=== PATIENT | male | born 1960 | race Caucasian/White ===

== ENCOUNTER 2019-06-06 08:35 | Outpatient (RCR) | payer OTHER, SELFPAY | END 2019-07-03 00:01 | LOC: SPT 08:35 | PROVIDERS: Family Provider Internal Medicine; Visit Provider Orthopaedic Surgery | DX: M94.261 Chondromalacia, right knee (principal) | CPT/HCPCS: 97110 ×3; 97161 ==

== ENCOUNTER 2019-07-04 12:11 | Outpatient (RCR) | payer OTHER, SELFPAY | END 2019-07-16 23:00 | disposition home or self-care (01) | LOC: SPT 12:11 | PROVIDERS: Family Provider Internal Medicine; PCP Family Medicine; Visit Provider Orthopaedic Surgery | DX: M94.261 Chondromalacia, right knee (principal) ==

== ENCOUNTER 2021-01-02 08:56 | Outpatient (CLI) | payer OTHER, SELFPAY ==
--- NOTE | 2021-01-02 09:09 | FL_ITS ---
WS: [id number] Barium swallow and esophagram, 01/02/2021 Clinical Data: DYSPHAGIA Comparison: None. Fluoroscopy time: 0.9 minutes. Findings: The patient swallowed the thick and thin barium, and it flowed through the hypopharynx without hesita tion. No stricture, mass, polyp or erosion was seen. The patient has an anterior cervical disc fusion of C3-C4. The barium entered the esophagus and there was normal motility throughout. No hiatal hernia, reflux, stricture, polyp, mass, erosion or ulcer was noted. No reflux was present. FL/FL barium swallow [id number] Impression: Normal esophagram.
--- NOTE | 2021-01-02 09:09 | CT_ITS ---
WS: [id number] CT scan of the neck. Additional two-dimensional coronal and sagittal reconstruction was performed. 01/02/2021 Clinical Data: DYSPHAGIA Comparison: None. DLP: 1401.[address] scans at [facility] use at least one of these dose optimization techniques: automat ed exposure control; mA and/or kV adjustment per patient size (includes targeted exams where dose is matched to clinical indication); or iterative reconstruction. Findings: No lymphadenopathy is noted. The salivary glands are unremarkable. There is no prevertebral soft tiss ue swelling. The larynx is symmetric. The thyroid gland shows normal enhancement. The floor of the mo uth and parapharyngeal spaces are normal. The oral cavity is unremarkable. The carotid arteries bifurcate normally. The cervical spine demonstrates an anterior cervical disc fu nisha at C4-C5. Moderate osteoarthritis of the vertebral bodies from C2 through C7 is seen. The lung a pices show no abnormalities. The portions of the intracranial circulation which are seen demonstrate no abnormalities. No erosion of the skull or skull base is seen. The left maxillary sinus shows mucop eriosteal thickening. CT/CT neck w con* [id number] Impression: Negative CT scan of the neck.
[2021-01-02 09:44] LABS: Blood Urea Nitrogen 12 mg/dL (8-23); Glomerular Filtration Rate 137.4 mL/min (90-130)
[2021-01-02] MEDS: iohexol 300 mg/mL 100 mL Btl IV (09:49)
== END 2021-01-02 08:57 | disposition home or self-care (01) ==
PROVIDERS: Radiology Diagnostic Radiology; PCP Family Medicine; Visit Provider Specialist
DX: R13.10 Dysphagia, unspecified (principal)
CPT/HCPCS: 70491; 74220; 82565; 84520; Q9967

== ENCOUNTER 2022-03-12 10:24 | Outpatient (CLI) | payer OTHER, SELFPAY ==
[2022-03-12 11:57] LABS: Basophils % 1.1 %; Eosinophils % 0.4 %; Hematocrit 42.8 % (42.0-52.0); Hemoglobin 14.6 g/dL (11.7-16.6); Lymphocytes # 0.6 10^3/uL (0.8-4.8); Mean Corpuscular HGB Conc 34.1 g/dL (30.0-36.0); Mean Corpuscular Hemoglobin 29.6 pg (28.0-34.0); Mean Corpuscular Volume 86.6 fl (80-94); Monocytes # 0.7 10^3/uL (0.2-0.9); Monocytes % 25.2 %; Neutrophils # 1.28 10^3/uL (1.8-7.7); Neutrophils % 48.9 %; Nucleated Red Blood Cells % 0 %; Platelet Count 147 10^3/cmm (130-400); Red Blood Count 4.94 10^6/uL (4.1-5.3); White Blood Count 2.6 10^3/uL (4.0-10.0)
== END 2022-03-12 10:25 | disposition home or self-care (01) ==
LOC: LAB 10:28
PROVIDERS: PCP Family Medicine; Visit Provider Chiropractor
DX: C85.90 Non-Hodgkin lymphoma, unspecified, unspecified site (principal)
CPT/HCPCS: 85025

== ENCOUNTER 2022-08-24 08:52 | Outpatient (CLI) | payer OTHER, SELFPAY ==
--- NOTE | 2022-08-24 09:39 | XR_ITS ---
WS: [id number] Comparison 07/17/2012. Exam: XR shoulder LT min 2V* [id number] Date/Time of Exam: 08/24/2022 9:44 AM Reason For Exam: LEFT SHOULDER PAIN No fracture or dislocation noted. Degenerative change of the AC joint and the greater humeral tuberos ity. Normal soft tissues. XR/XR shoulder LT min 2V* [id number] IMPRESSION: 1. Degenerative changes. No fracture or dislocation.
--- NOTE | 2022-08-24 09:39 | XR_ITS ---
WS: [id number] Exam: XR lumbar spine 2-3V* [id number] Date/Time of Exam: 08/24/2022 9:44 AM Reason For Exam: LOW BACK PAIN No acute fracture or dislocation. Mild spondylosis. Disc spaces are preserved. Facet DJD at L4-5 and L5-S1. XR/XR lumbar spine 2-3V* [id number] IMPRESSION: 1. No fracture or malalignment. 2. Mild degenerative changes.
--- NOTE | 2022-08-24 09:39 | XR_ITS ---
WS: [id number] Exam: XR cervical spine 3V* [id number] Date/Time of Exam: 08/24/2022 9:44 AM Reason For Exam: NECK PAIN Comparison with outside images performed 05/20/2014. No acute fracture or dislocation. There is anterior fusion at C4-5 which is in good alignment without change. Facet DJD at all levels. Spondylosis from C2 to C7. There is straightening. Normal paraspina l soft tissue structures. The odontoid is intact. XR/XR cervical spine 3V* [id number] IMPRESSION: 1. Anterior fusion at C4-5 with plate and screw fixation stable in appearance. 2. No fracture or malalignment. Degenerative changes. Straightening.
== END 2022-08-24 08:53 | disposition home or self-care (01) ==
LOC: RAD 09:22
PROVIDERS: PCP Family Medicine; Visit Provider Dermatology
DX: Z02.71 Encounter for disability determination (principal); M25.512 Pain in left shoulder; M47.816 Spondylosis without myelopathy or radiculopathy, lumbar region; M47.817 Spondylosis without myelopathy or radiculopathy, lumbosacral region; Z98.1 Arthrodesis status; M47.812 Spondylosis without myelopathy or radiculopathy, cervical region
CPT/HCPCS: 72040; 72100; 73030

== ENCOUNTER → 2023-03-28 09:36 | Outpatient (BNVA) | payer OTHER, SELFPAY | PROVIDERS: PCP Family Medicine; Referring Provider Family Medicine; Visit Provider Surgery | DX: R19.00 Intra-abdominal and pelvic swelling, mass and lump, unspecified site (principal); D64.9 Anemia, unspecified | CPT/HCPCS: 99203; 99214 ==

== ENCOUNTER 2023-07-01 09:57 | Oncology outpatient (recurring) (ONCR) | payer OTHER, SELFPAY ==
--- OUTSIDE RECORDS SUMMARY | 2023-06-30 10:58 | XMS_ITS | Patient Health Record ---
Author Name Unknown Organization [facility] Address [address] [place], [place] [id number] Care Team Providers Care Creative/Art Director Name Role Phone Mame Moy PA-C Primary Care Provider Unavailjob Solis MD, Maxwell Unavailable [phone] [place], [place] Unavailable Unavailable ALLERGIES No Known Allergies REASON FOR REFERRAL No Information MEDICATIONS Medication SIG (Take, Route, Frequency, Duration) Notes Start Date End Date Status Lipitor 10 mg 1 tab orally once a day Active Januvia 25 mg 1 tab orally once a day Active glipiZIDE 10 mg 1 tab orally once a day Active finasteride 5 mg 1 tab orally once a day Active gabapentin 300 mg 1 cap po orally TID for 90 days Active ferrous sulfate 325 mg 1 tab orally 2 ti mes a day Active DULoxetine 60 mg 1 cap orally once a day Active Vitamin D3 1000 intl units as directed o rally once a day Active aspirin 81 mg 1 tab orally once a day Active Vitamin C with Tatiana Hips 500 mg 1 tab orally once a day Acti ve traMADol 50 mg 1 tab orally at bedtime Active metFORMIN 1000 mg 1 tab orally 2 times a day Active losartan 25 mg 1 tab orally once a day Active SOCIAL HISTORY Tobacco Use: Social History Observation Description Date Details (start date - stop date) Never Smoker NA - NA Sex Assigned At : Social History Observation Description Sex Assigned At Male alcohol Question Answer Notes Did you have a drink containing alcohol in the p ast year? No Points 0 Interpretation Negative Tobacco use: Question Answer Notes : nonsmoker PROBLEMS Problem Type ICD Code Onset Dates Problem Status W/U Status Risk SNOMED Code Notes Problem Low back pain (M54.5) Active confirmed Low back pain (479013578) Problem Spondylosis without myelopathy or radiculopathy, lumbar region (M47.816) Active confirmed Lumbosacral spondylosis without myelopathy (79391421) Problem intermediate frame tender (current) use of opiate analgesic (Z79.891) Active confirmed High risk drug monitoring status (896070341) Problem Obstructive sleep apnea (adult) (pediatric) (G47.33) Active confirmed Obstructive sleep apnea syndrome (42000694) Problem Pain in left shoulder (M25.512) Active confirmed Shoulder joint pain (379213469) Problem Cervical disc disorder with radiculopathy, unspecified cervical region (M50.10) Active confirmed Cervical radiculopathy (10194610) Problem Fibromyalgia (M79.7) Active confirmed Fibromyalgia (735488803) Problem Other adjunct faculty for medical terminology (current) drug therapy (Z79.899) Active confirmed Long-term current use of drug therapy (535621900) Problem Cervical disc disorder at C4-C5 level with radiculopathy (M50.121) Active confirmed Cervical disc disorder with radiculopathy (403727645) Problem Spinal stenosis, lumbar region without neurogenic claudication (M48.061) Active confirmed Spinal stenosis of lumbar region (69334769) Problem Vertebrogenic low back pain (M54.51) Active confirmed Vertebrogenic pain syndrome (691095554) PLAN OF TREATMENT No Information Insurance Providers Payer Name Payer Address Payer Phone Subscriber Number Group Number Insured Name Patient Relationship to Insured Coverage Start Date Coverage End Date [employer] [address] [place] [address] [id number] Charles Perales Self - patient is the insured MEDICAL (GENERAL) HISTORY Medical History History ICD Code Fibromyalgia Neck pain Low back pain Shoulder pain Migraine headaches Sleep apnea syndrome Limited flexion of knee Diabetes mellitus type 2 Abnormal results of liver function studi es Essential hypertension Hyperlipidemia / statin medication use Injury of the bladder Paralysis of median nerve Obesity, moderate Impairment of sphincter control Polyp of colon Psychosexual disorder Lumbar spinal stenosis, mult ilevel, mild to moderate (as noted upon review of 2018 MRI report) Surgical History Surgery Date(Month/Year) C4-5 ACDFF, performed at [facility] by Dr. Carlene Ramírez, 2008 Left shoulder surgery, performed at [facility] by Dr. Chris Hahn, 2008 Right cataract surgery, performed by Dr. Gunter, 2019 Hospitalization History Reason Date(Month/Year)
--- OUTSIDE RECORDS SUMMARY | 2023-07-01 09:58 | XMS_ITS | Patient Health Record ---
Author Name Unknown Organization [facility] Address [address] [place], [place] [address] Care Team Providers Care Auto Repair Shop Manager Name Role Phone Mame Moy PA-C Primary Care Provider Unavailjob Solis MD, Maxwell Unavailable [phone] [place], [place] Unavailable Unavailable ALLERGIES No Known Allergies REASON [...] pain (M54.5) Active confirmed Low back pain (857204696) Problem Spondylosis without myelopathy or radiculopathy, lumbar region (M47.816) Active confirmed Lumbosacral spondylosis without myelopathy (87146223) Problem equipment operator intermodal yard (current) use of opiate analgesic (Z79.891) Active confirmed High risk drug monitoring status (905530404) Problem Obstructive sleep apnea (adult) (pediatric) (G47.33) Active confirmed Obstructive sleep apnea syndrome (02050249) Problem Pain in left shoulder (M25.512) Active confirmed Shoulder joint pain (097004339) Problem Cervical disc disorder with radiculopathy, unspecified cervical region (M50.10) Active confirmed Cervical radiculopathy (88887240) Problem Fibromyalgia (M79.7) Active confirmed Fibromyalgia (442993544) Problem Other termite exterminator helper (current) drug therapy (Z79.899) Active confirmed Long-term current use of drug therapy (859248545) Problem Cervical disc disorder at C4-C5 level with radiculopathy (M50.121) Active confirmed Cervical disc disorder with radiculopathy (278025264) Problem Spinal stenosis, lumbar region without neurogenic claudication (M48.061) Active confirmed Spinal stenosis of lumbar region (29777545) Problem Vertebrogenic low back pain (M54.51) Active confirmed Vertebrogenic pain syndrome (918878658) PLAN OF TREATMENT No Information Insurance Providers Payer Name Payer Address Payer Phone Subscriber Number Group Number Insured Name Patient Relationship to Insured Coverage Start Date Coverage End Date [employer] [address] [place] [address] [id number] Charles Perales Self - patient is the [...] History Surgery Date(Month/Year) C4-5 ACDFF, performed at [facility] by Dr. Carlene Ramírez, 2008 Left shoulder surgery, performed at [facility] by Dr. Chris Hahn, 2008 Right cataract surgery, performed by Dr. Gunter, 2019 Hospitalization History Reason Date(Month/Year)
--- OUTSIDE RECORDS SUMMARY | 2023-07-01 09:58 | XMS_ITS | Patient Health Record ---
Author Name Unknown Organization [facility] Address [address] [place] [address] Care Team Providers Care Bar Pilot Name Role Phone Jacoby Moore Unavailable [phone] REASON FOR REFERRAL No Information MEDICATIONS Medication SIG (Take, Route, Frequency, Duration) Notes Start Date End Date Status Iron 90 (18 Fe) MG 1 tablet Orally Once a day Active Atorvastatin Calcium 10 mg 1 tablet Orally once daily at hs Active Januvia 25 mg TAKE 1 TABLET DAILY Active Vitamin D 25 MCG (1000 UT) 1 tablet Orally Once a day for 30 day(s) Active Finasteride 5 mg 1 tablet Orally Once a day Active Ozempic (0.25 or 0.5 MG/DOSE) 2 MG/1.5ML 0.5 mg Subcutaneous weekly Active metFORMIN HCl 1000 mg TAKE 1 TABLET TWIC E A DAY Active glipiZIDE 10 mg 1 tablet 30 minutes before meals Orally Twice daily Active DULoxetine HCl 60 mg 1 capsule Orally On ce a day Active Aspirin 81 MG Oral Tablet Aspirin 81 MG Oral Tablet 06/22/2016 Active Losartan Potassium 25 mg 1 tablet Orally Once a day Active IMMUNIZATIONS Vaccine Route Administration Date Status Comme nts Afluria Quadrivalent influenza vaccine IM Intramuscular 05/09/2020 Administered SOCIAL HISTORY Tobacco Use: Social History Observation Description Date Details (start date - stop date) Never Smoker NA - NA Sex Assigned At : Social History Observation Description Sex Assigned At Unknown Tobacco Use/Smoking Question Answer Notes Are you a nonsmoker Alcohol Screen (Audit-C) Question Answer Notes Did you have a drink containing alcohol in the p ast year? No Points 0 Interpretation Negative PROBLEMS Problem Type ICD Code Onset Dates Problem Status W/U Status Risk SNOMED Code Notes Problem Fibromyalgia (M79.7) Active confirmed 2 71148659 Problem Essential hypertensi on (I10) Active confirmed 36414707 Problem Type 2 diabetes mellitus without complication, without long-term current use of insulin (E11.9) Active confirmed 240734773 Problem Hypercholesterolemia (E78.00) Active confirmed 90724188 Problem Enlarged prostate (N40.0) Active confirmed 888053497 Problem Chronic maxillary sinusitis (473.0) 017 Active confirmed Chronic maxillary sinusitis (06546900) [facility]- Problem Fibromyalgia (729.1) 016 Active confirmed Fibromyalgia (043423477) [facility] [place]- Problem Hypertension (401.1) 015 Active confirmed Hypertension (68548309) [facility] [place]- Problem Type II diabetes (250.00) 015 Active confirmed Type II diabetes mellitus without complication (339566003) [facility] [place]- Problem Posttraumatic stress disorder (309.81) 016 Problem resolved confirmed Posttraumatic stress disorder (54701917) [facility] [place]- Problem Acute serous otitis media (381.01) 016 Problem resolved confirmed Acute non-suppurative otitis media - serous (974371362) [facility]- Problem Glossitis (529.0) 018 Problem resolved confirmed Glossitis (69214678) [facility]- Problem Cough (786.2) 014 Problem resolved confirmed Cough (71913284) [facility]- Problem Urgency of urination (788.63) 018 Problem resolved confirmed Urgent desire to urinate (33207035) [facility]- Problem Ingrown toenail (703.0) 016 Problem resolved confirmed Ingrown toenail (954103821) [facility]- Problem Sinusitis (461) 016 Problem resolved confirmed Sinusitis (25734926) [facility]- Problem Acute sinusitis (461.9) 016 Problem resolved confirmed Acute sinusitis (82478037) [facility]- Problem Other abnormal findings on blood examination (790.99) 018 Problem resolved confirmed Disorder of hematopoietic system (21032514) [facility]- Problem Sore Throat (462) 015 Problem resolved confirmed Sore throat (744287478) [facility] Problem Esophageal stricture (530.3) 017 Problem resolved confirmed Esophageal stricture (87497194) [facility] [place] [facility] Problem Acute suppurative otitis media (382.00) 017 Problem resolved confirmed Acute suppurative otitis media (082066832) [facility] [place] [facility] Problem Other specified iron deficiency anemia (280.8) 018 Problem resolved confirmed Iron deficiency anemia (84255184) [facility] [place] Problem Chronic serous otiti s media (381.10) 016 Problem resolved confirmed Chronic serous otitis media (92263929) [facility] [place] [facility] Problem Joint pain, multiple sites (719.49) 016 Problem resolved confirmed Multiple joint pain (90496209) [facility] [place] [facility] Problem Knee pain (719.46) 015 Problem resolved confirmed Knee pain (5416660028) [facility] [place] Problem Allergies (477) 015 Problem resolved confirmed History of multiple allergies (situation) (415232106) [facility] [place] [facility] PLAN OF TREATMENT No Information Insurance Providers Payer Name Payer Address Payer Phone Subscriber Number Group Number Insured Name Patient Relationship to Insured Coverage Start Date Coverage End Date for Life Secondary to Medicare [address] [place] [phone] [id number] Diaz Charles Self - patient is the insured MEDICAL (GENERAL) HISTORY Medical History History ICD Code Esophageal stricture K22.2 Fibromyalgia M79.7 Enlarged prostate N40.0 Type 2 diabetes mellitus not at goal E11 .9 Sleep apnea G47.30 Essential Hypertension Hypercholesterolemia Fatty Liver with elevated LFTs per patie nt Surgical History Surgery Date(Month/Year) SLAP repair of left shoulder, by Dr. Riojas 2008 C3-C4 Fusion, By Dr. Ramírez 02/2008 Bilateral carpal tunnel 2001
--- NOTE | 2023-07-01 12:45 | N.ONRAD NP_ITS ---
Radiation Oncology New Patient Visit Patient: Charles Perales MR#: [id number] : 1960 Age: 63 Sex: Male Dictated by: Kaiden Farmer M.D. Date of Service: 07/01/2023 Referring Physician(s) : Dr. Anibal Montana Diagnosis: Prostate, adenocarcinoma, Atlantic score 4+4 = 8 (grade group 4), stage T2b vs T3a vs T3b N0 M0, risk group high (risk group very high if T3a or T3b) Radiotherapy to date: Summary > No prior radiation therapy. Chief Complaint / History of Present Illness: Mr. 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 A repeat study was 5.09. He had been on finasteride for 3 to 4 years, thus the true PSA value was 9-10. On physical examination he was found to have a nodule in the right base of the prostate. He had a CT of the abdomen and pelvis which showed irregularity of the right prostate base, possible right seminal vesicle invasion, and possibly an abnormal node adjacent to the seminal vesicle. He underwent transrectal ultrasound guided biopsies of the prostate. The right base was noted to be abnormal in appearance on ultrasound. The seminal vesicles were described as normal. The pathology revealed Anjel score 4+4 equal 8 involving multiple segments of fragmented cores obtained from the right base. Cancer involved 60% of the tissue submitted. From the right mid gland he had Anjel score 4+3 equal 7 involving 2 of 3 cores. The left apex had Atlantic score 3+4 equal 7 cancer in 2 of 2 cores. The left base contained Anjel score 4+3 equal 7 involving 1 of 2 cores. A PSMA PET scan was ordered. It showed abnormality in the right base of the prostate. No other abnormal areas detected. Specifically no elroy disease or metastatic disease were seen. Treatment options were discussed. Mr. Perales has decided on combined treatment with hormonal therapy and external beam radiation. He is referred to initiate the process. He has been largely asymptomatic in terms of the cancer. He is now off finasteride and he has had some increase in obstructive symptoms. On the symptom score sheet he scores 1 for incomplete emptying, 2 for frequency, 1 for intermittency, 3 for urgency, 1 for weak stream, 0 for straining and 2 for nocturia. He has not had any new bone or joint pain. Current Medications: Atorvastatin, duloxetine, glipizide, iron, vitamin D3, vitamin C, metformin, losartan. Finasteride has been discontinued. Allergies: No Known Allergies Medical History: No history of collagen vascular disease. No previous radiation therapy. In 2021 he was treated for follicular B cell non-Hodgkin's lymphoma at [facility]. He had masses involving the parotid area and abdomen. He also had some abnormal lymph nodes in the chest according to his . He had night sweats as his only B symptom. Other problems include a history of abnormal LFTs, gallstones without cholecystitis, cervical disc disease, hypertension, fibromyalgia, hyperlipidemia, obstructive deep sleep apnea on CPAP, and anemia following chemotherapy. He very recently had a skin cancer removed from beneath one of his eyes. He thinks it was a basal cell carcinoma. We do not have pathology. Surgical History: He has a plate in his cervical spine, had left shoulder surgery, right cataract removal, right LASEK surgery. Family History: Over a 10-year. His father had thyroid cancer, lung cancer, and kidney cancer. His mother had lung cancer metastatic to bone. He is not aware of any cancer in grandparents, aunts, uncles, or cousins. He has a son and daughter, ages 37 and 33. No history of cancer in them. Social History: Is and comes in with his . Current Complaints / Review of Systems: . General: No weight loss, sweats, or unexplained fever. Head and neck: He has tinnitus with stopped up ears. [facility]. No vision problems. His states that he seems to choke more when swallowing than is normal.Pulmonary: No unusual dyspnea, cough, sputum production, hemoptysis, or pleuritic pain.Cardiovascular: No chest tightness, pressure, pain, or venous stasis.GI: No difficulty chewing, swallowing, digesting food, or with bowel movements. As mentioned, his thinks that he chokes on food frequently. He is being scheduled for an upper GI and colonoscopy.: See history. No hematuria, dysuria, or pyuria. Musculoskeletal: Restricted movement of his left shoulder following an accident and surgery. Otherwise no unusual pain, loss of motion, or swelling in joints or bone. Vital Signs: Performed on 07/01/2023 9:28 AM BMI - 35.642 kg/m2 (high), Height - 70 in, Weight - 248.4 lbs, Temperature - 97.1 f, Pulse - 87 /min, Respiration - 16 /min, O2 Sat - 96 %, Pain - 0, Fatigue - 4 and BP - 122/ 84 mm(hg). Physical Exam: General: Alert, oriented, no acute distress. Lymph nodes: No abnormal lymphadenopathy detected in the neck, supraclavicular area, axillae, or inguinal area. Facial area: Well-healed surgical scar where the skin cancer was removed from his face several days ago. He thinks it was a basal cell carcinoma. No mass, lymphadenopathy, or other abnormality noted in the parotid gland areas. Oral cavity moist and without lesions.Neck: Supple. Good range of motion. No masses.Lungs: Clear to percussion. On auscultation no rales, rhonchi, or wheezes.Heart: Regular rhythm. No murmur, gallop, or rub.Abdomen: Obese. No distention. No organomegaly or mass or tenderness.Rectal: No external lesions. No rectal mass. The prostate is small. There is induration from the level of the midportion of the prostate up through the right base. There is probably encroachment on the lateral sulcus but it is very difficult to be certain. I could not reach the level of the seminal vesicles.Neurologic: Thought processes seem appropriate and normal. Cranial nerves intact. Motor strength symmetrical and excellent bilaterally. Normal gait without assistance. Finger-nose exam intact. Edtr-ni-qtzk exam intact. Performance Status: KPS 90 Pathology: See history Lab: Remarkable results from blood work 01/05/2023 are microalbumin less than 5.0, PSA 4.54, triglyceride 179, glucose 250, hemoglobin A1c 7.8. He has been told he is anemic but his blood work from the same day showed hemoglobin of 14.9 and a hematocrit of 43.5. WBC was 7.0 and platelets were 259,000. Imaging: See HPI Impression: Mr. Perales has either a high risk or very high risk carcinoma of the prostate. Based on physical exam and CT, he may have extra prostatic extension including seminal vesicle involvement. He is a candidate for combined modality therapy. I explained the rationale for androgen suppression as long with external beam radiation. At this point, he needs to get hormonal therapy started. I told him that I thought he should go ahead and have a SpaceOAR placed, particularly in view of the fact that he has a history of aggressive chemotherapy for non-Hodgkin's lymphoma. I explained that the SpaceOAR can significantly reduce the dose of radiation to the rectum. With cone beam CT for image guidance, fiducials are not mandatory, but they can certainly be helpful in assuring a very accurate daily treatment set up. He will schedule the hormone therapy, SpaceOAR placement, and fiducial placement through Dr. Montana's office. I also recommended an MRI of the pelvis. He has a high-grade cancer in the right base, and I think he is certainly at high risk for seminal vesicle involvement as well as extraprostatic extension. Both physical exam and CT suggest the possibility of involvement beyond the prostate. Also on CT there was the question of an abnormal lymph node adjacent to the right seminal vesicle and an MR should clarify whether there is indeed an abnormal node in that area. The MRI can be very helpful with simulation and treatment planning, and if necessary, can be fused to the treatment planning CT. Questions were answered. Mr. Perales has already done considerable research about the treatment and wishes to proceed as discussed above. Plan: I will order a MRI of the pelvis here at [facility]. Staff will notify Dr. Montana's office that the patient is ready to proceed with the initiation of hormonal therapy, placement of fiducials, and placement of a SpaceOAR. I have recommended that Mr. Perales come back for simulation about 3 weeks after hormonal therapy is started. Signed by: 07/01/2023 12:43:23 PM <<Signature on File>> Time spent with patient: CPT Code: CPT Code:
== END 2023-07-03 23:59 | disposition home or self-care (01) ==
PROVIDERS: PCP Family Medicine; Visit Provider Specialist
DX: C61 Malignant neoplasm of prostate (principal); Z92.21 Personal history of antineoplastic chemotherapy; Z85.72 Personal history of non-Hodgkin lymphomas
CPT/HCPCS: 99205

== ENCOUNTER 2023-08-02 07:36 | Outpatient (CLI) | payer OTHER, SELFPAY ==
--- NOTE | 2023-08-02 08:00 | MRR_ITS ---
PROCEDURE INFORMATION: Exam: MR Pelvis Without and With Contrast; PI-RADS Exam date and time: 08/02/2023 8:10 AM Age: 63 years old Clinical indication: Condition or disease; Cancer; Location of cancer or specific organ: Prostate; Additional info: Prostate cancer LABS AND CLINICAL REPORTS: Prostate-specific antigen (PSA, ng/mL): Not submitted. Previous biopsies: Unknown. TECHNIQUE: Imaging protocol: Magnetic resonance imaging of the pelvis without and with contrast. Exam focused on the prostate. Contrast material: MULTIHANCE; Contrast volume: 20 ml; Contrast route: INTRAVENOUS (IV); COMPARISON: CT abdomen pelvis w con* [id number] 12/24/2021 11:30 AM FINDINGS: Prostate dimensions: 3.4 x 4.5 x 4.8 cm. Prostate volume: 48 mL. Hemorrhage: None. Peripheral zone: Focus of abnormal T2 signal and enhancement involving the posterior peripheral zone along the base of the right. Transition zone: Unremarkable. No focal lesion. LESION 1: Prostate lesion 1 Location: Posterior peripheral zone along the base on the right. Prostate lesion 1 PACS image reference: Series 501, image 33. Prostate lesion 1 Size: 2.0 x 1.9 x 1.1 cm. Prostate lesion 1 T2: Hypointense signal. Prostate lesion 1 DWI: Not included. Prostate lesion 1 Dynamic contrast enhancement: Presence of enhancement. Prostate lesion 1 Prostate margin involvement: Yes. Prostate lesion 1 PI-RADS category: 5. Prostate index lesion: None. Prostate index lesion volume: None. Extra-prostatic extension: None. Neurovascular bundles of the prostate: Not involved. Seminal vesicles: Not involved. Bladder: Unremarkable. Lymph nodes: No lymphadenopathy. Bones/joints: Unremarkable. No osseous metastasis. Soft tissues: Unremarkable. MR/MR pelvis wo/w con [id number] IMPRESSION: Focus of abnormal signal involving the posterior peripheral zone along the base on the right, with PI-RADS 5 imaging characteristics.
[2023-08-02] MEDS: gadobenate dimeglumine 20 mL vial IV (08:43)
== END 2023-08-02 07:37 | disposition home or self-care (01) ==
LOC: RAD 07:37
PROVIDERS: PCP Family Medicine; Visit Provider Specialist
DX: C61 Malignant neoplasm of prostate (principal)
CPT/HCPCS: 72197; A9577

== ENCOUNTER 2023-08-29 09:01 | Oncology outpatient (recurring) (ONCR) | payer OTHER, SELFPAY ==
--- OUTSIDE RECORDS SUMMARY | 2023-08-16 08:24 | XMS_ITS | Patient Health Record ---
Author Name Unknown Organization [facility] Address [address] [place] [address] Care Team Providers Care Shuttle Final Inspector Name Role Phone Jacoby Moore Unavailable [phone] REASON FOR REFERRAL No Information MEDICATIONS Medication [...] Notes Problem Fibromyalgia (M79.7) Active confirmed 2 32429582 Problem Essential hypertensi on (I10) Active confirmed 27165832 Problem Type 2 diabetes mellitus without complication, without long-term current use of insulin (E11.9) Active confirmed 381692394 Problem Hypercholesterolemia (E78.00) Active confirmed 08282796 Problem Enlarged prostate (N40.0) Active confirmed 944962753 Problem Chronic maxillary sinusitis (473.0) 017 Active confirmed Chronic maxillary sinusitis (54772885) [facility]- Problem Fibromyalgia (729.1) 016 Active confirmed Fibromyalgia (528768579) [facility]- Problem Hypertension (401.1) 015 Active confirmed Hypertension (14770085) [facility]- Problem Type II diabetes (250.00) 015 Active confirmed Type II diabetes mellitus without complication (332969440) [facility]- Problem Posttraumatic stress disorder (309.81) 016 Problem resolved confirmed Posttraumatic stress disorder (98566041) [facility]- Problem Acute serous otitis media (381.01) 016 Problem resolved confirmed Acute non-suppurative otitis media - serous (410114268) [facility]- Problem Glossitis (529.0) 018 Problem resolved confirmed Glossitis (39781505) [facility]- Problem Cough (786.2) 014 Problem resolved confirmed Cough (27791792) [facility]- Problem Urgency of urination (788.63) 018 Problem resolved confirmed Urgent desire to urinate (53066450) [facility]- Problem Ingrown toenail (703.0) 016 Problem resolved confirmed Ingrown toenail (191630886) [facility]- Problem Sinusitis (461) 016 Problem resolved confirmed Sinusitis (23708768) [facility]- Problem Acute sinusitis (461.9) 016 Problem resolved confirmed Acute sinusitis (29286965) [facility]- Problem Other abnormal findings on blood examination (790.99) 018 Problem resolved confirmed Disorder of hematopoietic system (99463732) [facility]- Problem Sore Throat (462) 015 Problem resolved confirmed Sore throat (519251117) [facility]- Problem Esophageal stricture (530.3) 017 Problem resolved confirmed Esophageal stricture (30499855) [facility]- Problem Acute suppurative otitis media (382.00) 017 Problem resolved confirmed Acute suppurative otitis media (955472529) [facility]- Problem Other specified iron deficiency anemia (280.8) 018 Problem resolved confirmed Iron deficiency anemia (50451560) [facility]- Problem Chronic serous otiti s media (381.10) 016 Problem resolved confirmed Chronic serous otitis media (83947582) [facility]- Problem Joint pain, multiple sites (719.49) 016 Problem resolved confirmed Multiple joint pain (23983805) [facility]- Problem Knee pain (719.46) 015 Problem resolved confirmed Knee pain (2963331210) [facility]- Problem Allergies (477) 015 Problem resolved confirmed History of multiple allergies (situation) (568606964) [facility]- PLAN OF TREATMENT No Information Insurance Providers Payer Name Payer Address Payer Phone Subscriber Number Group Number Insured Name Patient Relationship to Insured Coverage Start Date Coverage End Date for Life Secondary to Medicare [address] [place] [phone] [id number] Diaz Charles Self - patient is the [...]
--- NOTE | 2023-08-23 09:40 | ONCRAD TMN_ITS ---
Radiation Oncology Weekly Treatment Management Patient: Lurdes Perales MR#: [id number] : 1960 Attending Physician: Victor M Perales M.D Date of Service: 08/23/2023 Referring Physician(s) : Dr. Anibal Montana Diagnosis: C61 - Malignant neoplasm of prostate, Diagnosed 04/05/2023 (Active) Radiotherapy to date: Course: Prostate 2023, Treatment Site: Prostate, Ref. ID: [id number], Energy: 6X, Dose/Fx (cGy): 250, #Fx: , Dose Correction (cGy): 0, Total Dose Delivered (cGy): 750, Start Date: 08/18/2023, Elapsed Days: 5 Reason for visit: The patient is being seen today as part of their regularly scheduled weekly on treatment visits to assess for acute toxicities from radiotherapy. Review of Systems: Patient denies any dysuria, urgency, or frequency. He has no complaints of diarrhea or constipation. He remains physically active and denies any difficulty sleeping. He had follow-up in [place] yesterday regarding his non-Hodgkin's lymphoma and reports that he got an excellent report. He has been seen by Dr. Jernigan for evaluation of hearing loss in his left ear and has an MRI ordered. Vital Signs: Performed on 08/23/2023 9:17 AM BMI - 36.101 kg/m2 (high), Height - 70 in, Weight - 251.6 lbs, Temperature - 97.2 f, Pulse - 93 /min, Respiration - 16 /min, O2 Sat - 97 %, Pain - 0, Fatigue - 0 and BP - 125/ 80 mm(hg). Physical Exam: Alert and oriented male appearing his stated age. Patient ambulatory without assistance. Imaging: Radiation therapy imaging related to accurate target localization (i.e. KV, MV and CBCT) was reviewed. Appropriate changes, if any, were made to ensure treatment accuracy. Plan: Patient is early in treatment and is tolerating treatment well. Plan to continue prescribed treatment. Signed by: Victor M Perales 08/23/2023 9:39:25 AM
== END 2023-08-29 23:59 | disposition home or self-care (01) ==
PROVIDERS: PCP Family Medicine; Visit Provider Radiology Radiation Oncology
DX: Z53.9 Procedure and treatment not carried out, unspecified reason (principal)
CPT/HCPCS: 77300; 77301; 77334; 77336; 77338; 77385; 77470; 99024

== ENCOUNTER 2023-09-01 08:54 | Oncology outpatient (recurring) (ONCR) | payer OTHER, SELFPAY ==
--- NOTE | 2023-08-30 09:19 | ONCRAD TMN_ITS ---
Radiation Oncology Weekly Treatment Management Patient: Charles Perales MR#: [id number] : 1960 Attending Physician: Dr. Noemi Salmon Date of Service: 08/30/2023 Fractions: to the prostate Referring Physician(s) : Diagnosis: C61 - Malignant neoplasm of prostate, Diagnosed 04/05/2023 (Active) Radiotherapy to date: Course: Prostate 2023, Treatment Site: Prostate, Ref. ID: [id number], Energy: 6X, Dose/Fx (cGy): 250, #Fx: , Dose Correction (cGy): 0, Total Dose Delivered (cGy): 1,750, Start Date: 08/18/2023, Elapsed Days: 12 Reason for visit: The patient is being seen today as part of their regularly scheduled weekly on treatment visits to assess for acute toxicities from radiotherapy. Review of Systems: Patient denies any complaints or changes today Vital Signs: Performed on 08/30/2023 9:09 AM BMI - 35.642 kg/m2 (high), Height - 70 in, Weight - 248.4 lbs, Temperature - 98 f, Pulse - 66 /min, Respiration - 16 /min, O2 Sat - 98 %, Pain - 0, Fatigue - 3 and BP - 129/ 82 mm(hg). Physical Exam: Patient is alert and orient x 3. Imaging: Radiation therapy imaging related to accurate target localization (i.e. KV, MV and CBCT) was reviewed. Appropriate changes, if any, were made to ensure treatment accuracy. Plan: We reviewed the typical symptoms for treatment to the prostate. He has had no changes over these first 2 weeks of treatment. We talked about how the next week or 2 will tell if we have additional changes or if they will not occur. Will continue with his treatments as planned Signed by: Dr. Noemi Salmon 08/30/2023 9:18:26 AM
== END 2023-09-01 23:59 | disposition home or self-care (01) ==
PROVIDERS: PCP Family Medicine; Visit Provider Radiology Radiation Oncology
DX: Z51.0 Encounter for antineoplastic radiation therapy (principal); C61 Malignant neoplasm of prostate
CPT/HCPCS: 77385; 99024

== ENCOUNTER 2023-09-02 06:46 | Outpatient (CLI) | payer OTHER, SELFPAY ==
--- NOTE | 2023-09-02 07:14 | MR_ITS ---
WS: [id number] MRI HEAD WITH CONTRAST WITH ATTENTION TO THE INTERNAL AUDITORY CANALS TECHNIQUE: Sagittal T1, T2 axial, T2 axial flair, axial susceptibility weighted imaging, axial diffus ion weighted images, and coronal T2 images were obtained. Pre and post T1 axial and post T1 coronal i mages. ADC and FSPGR images. Post gadolinium images with attention to the internal auditory canals. A xial fiesta imaging. CLINICAL INFORMATION: SENSORINEURAL HEARING LOSS, BILATERAL COMPARISON: None. FINDINGS: No evidence of restricted diffusion to suggest acute ischemia. Ventricular system and basal cisterns are patent. Minimal small vessel changes. No significant parenchymal volume loss. Normal posterior fo ssa. Normal vascular flow voids at the skull base. No extra-axial fluid collections. No evidence of m ass or mass effect. Paranasal sinuses are well aerated. Mild mucosal thickening in the LEFT mastoid a ir cells. No hemosiderin on the susceptibly weighted images. Normal optic chiasm and pituitary infundibulum. Te mporal lobes and hippocampal formations are normal in appearance. Proximal 7th and 8th cranial nerves are normal in appearance. No evidence of enhancing IAC or CP angl e mass. Normal trigeminal nerve root entry zones. No abnormal gadolinium enhancement. Normal dural ve nous sinuses. IMPRESSION: 1. No evidence of enhancing IAC or CP angle mass. Normal proximal 7th and 8th cranial nerves. 2. Normal trigeminal nerve root entry zones. 3. Mild mucosal thickening in the paranasal sinuses. Mild mucosal thickening LEFT mastoid tip. 4. Minimal small vessel changes. No significant parenchymal volume loss. 5. No hemosiderin on the susceptibly weighted images. 6. No other suspicious findings.
[2023-09-02] MEDS: gadobenate dimeglumine 20 mL vial IV (08:02)
== END 2023-09-02 06:47 | disposition home or self-care (01) ==
LOC: RAD 06:46
PROVIDERS: PCP Family Medicine; Visit Provider Specialist
DX: H90.3 Sensorineural hearing loss, bilateral (principal)
CPT/HCPCS: 70553; A9577

== ENCOUNTER 2023-09-20 08:50 | Oncology outpatient (recurring) (ONCR) | payer OTHER, SELFPAY ==
--- NOTE | 2023-09-06 09:30 | ONCRAD TMN_ITS ---
Radiation Oncology Weekly Treatment Management Patient: Charles Perales MR#: [id number] : 1960 Attending Physician: Dr. Noemi Salmon Date of Service: 09/06/2023 Fractions: Referring Physician(s) : Dr. Anibal Montana Diagnosis: C61 - Malignant neoplasm of prostate, Diagnosed 04/05/2023 (Active) Radiotherapy to date: Course: Prostate 2023, Treatment Site: Prostate, Ref. ID: [id number], Energy: 6X, Dose/Fx (cGy): 250, #Fx: , Dose Correction (cGy): 0, Total Dose Delivered (cGy): 3,000, Start Date: 08/18/2023, Elapsed Days: Reason for visit: The patient is being seen today as part of their regularly scheduled weekly on treatment visits to assess for acute toxicities from radiotherapy. Review of Systems: Patient's only complaint today is he noticed 2 days last week when he was quite fatigued Vital Signs: Performed on 09/06/2023 8:43 AM BMI - 35.757 kg/m2 (high), Height - 70 in, Weight - 249.2 lbs, Temperature - 96.9 f, Pulse - 66 /min, Respiration - 18 /min, O2 Sat - 96 %, Pain - 0, Fatigue - 5 and BP - 137/ 88 mm(hg). Physical Exam: Patient is no apparent distress sitting comfortably in his chair Imaging: Radiation therapy imaging related to accurate target localization (i.e. KV, MV and CBCT) was reviewed. Appropriate changes, if any, were made to ensure treatment accuracy. Plan: Will continue with his treatments as planned. I did recommend he take a break when he is feeling fatigued. Signed by: Dr. Noemi Salmon 09/06/2023 9:28:49 AM
--- NOTE | 2023-09-13 09:25 | ONCRAD TMN_ITS ---
Radiation Oncology Weekly Treatment Management Patient: Charles Perales MR#: [id number] : 1960 Attending Physician: Victor M Perales Date of Service: 09/13/2023 Referring Physician(s) : Diagnosis: C61 - Malignant neoplasm of prostate, Diagnosed 04/05/2023 (Active) Radiotherapy to date: Course: Prostate 2023, Treatment Site: Prostate, Ref. ID: [id number], Energy: 6X, Dose/Fx (cGy): 250, #Fx: , Dose Correction (cGy): 0, Total Dose Delivered (cGy): 4,250, Start Date: 08/18/2023, Elapsed Days: 26 Reason for visit: The patient is being seen today as part of their regularly scheduled weekly on treatment visits to assess for acute toxicities from radiotherapy. Review of Systems: Patient reports nocturia x 2. He denies any difficulty returning to sleep. He reports occasional fatigue which has improved. Vital Signs: Performed on 09/13/2023 9:00 AM BMI - 36.015 kg/m2 (high), Height - 70 in, Weight - 251 lbs, Temperature - 96.6 f, Pulse - 66 /min, Respiration - 18 /min, O2 Sat - 97 %, Pain - 0, Fatigue - 7 and BP - 135/ 86 mm(hg). Physical Exam: Alert and oriented male appearing his stated age. Patient ambulatory without assistance. Imaging: Radiation therapy imaging related to accurate target localization (i.e. KV, MV and CBCT) was reviewed. Appropriate changes, if any, were made to ensure treatment accuracy. Plan: Patient is tolerating radiation therapy well with minimal treatment related side effects. Plan to continue prescribed treatment. Signed by: Victor M Perales 09/13/2023 9:24:18 AM
--- NOTE | 2023-09-20 10:06 | ONCRAD TMN_ITS ---
Radiation Oncology Weekly Treatment Management Patient: Charles Perales MR#: [id number] : 1960 Attending Physician: Jacoby Almanzar Date of Service: 09/20/2023 Referring Physician(s) : Dr. Anibal Montana Diagnosis: C61 - Malignant neoplasm of prostate, Diagnosed 04/05/2023 (Active) Radiotherapy to date: Course: Prostate 2023, Treatment Site: Prostate, Ref. ID: [id number], Energy: 6X, Dose/Fx (cGy): 250, #Fx: , Dose Correction (cGy): 0, Total Dose Delivered (cGy): 5,500, Start Date: 08/18/2023, Elapsed Days: 33 Reason for visit: The patient is being seen today as part of their regularly scheduled weekly on treatment visits to assess for acute toxicities from radiotherapy. Review of Systems: Doing well. Stable 2 x nocturia. Good flow with no pain. Bowels normal. Active. Vital Signs: Performed on 09/20/2023 9:16 AM BMI - 35.613 kg/m2 (high), Height - 70 in, Weight - 248.2 lbs, Temperature - 96.9 f, Pulse - 78 /min, Respiration - 18 /min, O2 Sat - 95 % (low), Pain - 0, Fatigue - 4 and BP - 124/ 79 mm(hg). Physical Exam: omitted Imaging: Radiation therapy imaging related to accurate target localization (i.e. KV, MV and CBCT) was reviewed. Appropriate changes, if any, were made to ensure treatment accuracy. Plan: Good tolerance of treatment. Continue as planned. Signed by: Jacoby Almanzar 09/20/2023 10:05:00 AM
== END 2023-09-20 23:59 | disposition home or self-care (01) ==
PROVIDERS: PCP Family Medicine; Visit Provider Radiology Radiation Oncology
DX: Z51.0 Encounter for antineoplastic radiation therapy (principal); C61 Malignant neoplasm of prostate
CPT/HCPCS: 77014; 77336; 77385; 77427; 99024

== ENCOUNTER 2023-09-28 08:56 | Oncology outpatient (recurring) (ONCR) | payer OTHER, SELFPAY ==
--- NOTE | 2023-09-27 09:34 | ONCRAD TMN_ITS ---
Radiation Oncology Weekly Treatment Management Patient: Diaz Chatman MR#: [id number] : 1960> Attending Physician: Dr. Noemi Salmon Date of Service: 09/27/2023 Referring Physician(s) : Dr. Anibal Christian Diagnosis: C61 - Malignant neoplasm of prostate, Diagnosed 04/05/2023 (Active) Radiotherapy to date: Course: Prostate 2023, Treatment Site: Prostate, Ref. ID: [id number], Energy: 6X, Dose/Fx (cGy): 250, #Fx: 27 / 28, Dose Correction (cGy): 0, Total Dose Delivered (cGy): 6,750, Start Date: 08/18/2023, Elapsed Days: 40 Reason for visit: The patient is being seen today as part of their regularly scheduled weekly on treatment visits to assess for acute toxicities from radiotherapy. Review of Systems: Patient continues to have frequent stools for which he takes Imodium. He is also had some increase in the nausea and dry heaves during the course of his treatment. He had had nausea and dry heaves from his lymphoma treatment. He is due for a colonoscopy he thinks the end of October 02November Vital Signs: Performed on 09/27/2023 9:01 AM BMI - 35.613 kg/m2 (high), Height - 70 in, Weight - 248.2 lbs, Temperature - 96.4 f, Pulse - 98 /min, Respiration - 18 /min, O2 Sat - 95 % (low), Pain - 0, Fatigue - 5 and BP - 131/ 78 mm(hg). Physical Exam: Patient is in no apparent distress. Imaging: Radiation therapy imaging related to accurate target localization (i.e. KV, MV and CBCT) was reviewed. Appropriate changes, if any, were made to ensure treatment accuracy. Plan: He will be completing his treatments tomorrow. I have asked him to let the GI team know that he has just completed his radiation when they do his colonoscopy. [facility] will be [facility] a [facility] at that time. I reminded him that his PSA will be variable at this point as he is on medication to decrease his PSA and he is completing his radiation. He verbalized understanding of this. Will see him back in a month for follow-up with a PSA. Signed by: Dr. Noemi Salmon 09/27/2023 9:34:18 AM
== END 2023-10-02 23:59 | disposition home or self-care (01) ==
PROVIDERS: PCP Family Medicine; Visit Provider Radiology Radiation Oncology
DX: Z51.0 Encounter for antineoplastic radiation therapy (principal); C61 Malignant neoplasm of prostate
CPT/HCPCS: 77336; 77385; 99024

== ENCOUNTER 2023-10-21 16:03 | Emergency (ER) | payer OTHER, SELFPAY ==
[2023-10-21 16:14] VITALS: BP 117/87; PULSE 87; RESP 16; TEMP 36.7; O2SAT 97
--- NOTE | 2023-10-21 16:40 | ED_ITS ---
HPI - Wound/Laceration General: Chief Complaint: Wound/Laceration Stated Complaint: Left thumb lac Time Seen by Provider: 10/21/23 16:30 Source: patient Mode of arrival: ambulatory Limitations: no limitations History of Present Illness: 63-year-old male states he is using a gr mayelin kicked back hitting him in the left thumb he has a small 1 cm laceration midportion of the dorsum of his left thumb. He denies any pain currently bleeding is controlled denies any other injuries Associated symptoms: Denies chills, fever(s), nausea or vomiting Review of Systems Const: Denies: fever(s), chills, body aches or change in appetite Eyes: Denies: eye discomfort ENMT: Denies: throat pain or dental pain Card: Denies: chest pain Resp: Denies: dyspnea GI: Denies: abdominal pain, nausea, vomiting or diarrhea Musc: Denies: neck pain or back pain Skin/Breast: Denies: rash Neuro: Denies: headache(s) PFSH ED PFSH: Medical History Abnormal results of liver function studies Essential hypertension Fibromyalgia Hyperlipemia Obesity, unspecified Polyp of colon Psychosexual disorder Sleep apnea, unspecified Type 2 diabetes mellitus with hyperglycemia Family History Other Hypertension Social History Smoking and tobacco/nicotine status: never used tobacco/nicotine Alcohol intake: never Substance/Drug Use: never Physical Exam Const: COMMON NORMALS: no acute distress, patient oriented x3 and healthy appearing HENMT: COMMON NORMALS: normocephalic and atraumatic HEAD & SCALP: normocephalic and atraumatic Neck/C-Spine: COMMON NORMALS: full ROM and supple Chest: COMMONS NORMALS: normal inspection of the chest Resp: COMMON NORMALS: normal respiratory effort Extremity: COMMON NORMALS: full ROM NARRATIVE EXTREMITY EXAM: 1cm lac to right thumb superficial Neuro: COMMON NORMALS: patient oriented x3, moves all extremities and no focal motor deficits Psych: COMMON NORMALS: mental status grossly normal, Normal thought process present and cooperative THOUGHT PROCESS: Normal thought process present Skin: COMMON NORMALS: no rashes or lesions noted GENERAL SKIN EXAM: no rashes or lesions noted Procedures Laceration Laceration 1: Site: hand Side (If applicable): left Size (cm): 1 Description: linear Depth: simple, single layer Pre-repair: wound explored, irrigated extensively and deep structures intact Skin layer closed with: other (dermabond) Course Vital Signs: Vital signs: Vital Signs Temperature 98.0 F 10/21/23 16:14 Pulse Rate 87 10/21/23 16:14 Respiratory Rate 16 10/21/23 16:14 Blood Pressure 117/87 10/21/23 16:14 Pulse Oximetry 97 10/21/23 16:14 Oxygen Delivery Me thod Room Air 10/21/23 16:14 MDM - Wound/Laceration Medical Decision Making Patient presents here with a left thumb laceration did repair with tissue adhesive he is well-appearing here stable for discharge follow-up PCP return if worsening. Medical Records I reviewed the patient's medical records. No radiology studies performed this visit Discharge Plan Discharge Patient Disposition: Home Clinical Impression: Laceration Condition: Stable Prescriptions: No Action gabapentin 300 mg capsule 300 mg PO BID PRN (Reason: Pain) atorvastatin 20 mg tablet 20 mg PO DAILY cholecalciferol (vitamin D3) 50 mcg (2,000 unit) capsule 50 mcg PO DAILY duloxetine 60 mg capsule,delayed release(DR/EC) 60 mg PO DAILY losartan 50 mg tablet 50 mg PO DAILY metformin 500 mg tablet extended release 24 hr 500 mg PO BID glipizide 10 mg tablet 10 mg PO BID semaglutide (weight loss) 0.5 mg/0.5 mL pen injector 0.5 mg SUBCUT Q7D Discharge Orders: Discharge ED (Routine); Ordered 10/21/23 Ordered By: Ham Heard Referrals: Ruby Bernstein MD [Primary Care Provider] - 4-7 days Discharge Diet: Advance as tolerated Discharge Activity: Resume usual activity Patient Instructions: Skin Adhesive Care (ED) Coding Level of Care Code ED Cut To Length Operator for Medardo Rivera
[2023-10-21 16:43] VITALS: BP 117/87; PULSE 87; RESP 16; TEMP 36.7; O2SAT 97
== END 2023-10-21 16:47 | disposition home or self-care (01) ==
PROVIDERS: Emergency Provider Emergency Medicine; PCP Family Medicine
DX: S61.012A Laceration without foreign body of left thumb without damage to nail, initial encounter (principal); W29.8XXA Contact with other powered hand tools and household machinery, initial encounter; I10 Essential (primary) hypertension; E78.5 Hyperlipidemia, unspecified; E11.9 Type 2 diabetes mellitus without complications; Z79.84 Long term (current) use of oral hypoglycemic drugs; Z79.85 Long-term (current) use of injectable non-insulin antidiabetic drugs
CPT/HCPCS: 99282

== ENCOUNTER 2023-10-26 08:47 | Oncology outpatient (recurring) (ONCR) | payer OTHER, SELFPAY ==
[2023-10-25 11:56] LABS: Prostate Specific Antigen 0.064 ng/mL (0-4)
--- NOTE | 2023-10-26 09:43 | ONCRAD EPV_ITS ---
Radiation Oncology Established Patient Visit Patient: Charles Perales [id number] : 1960 Age: 63 Sex: Male Dictated by: Dr. Noemi Salmon Date of Service: 10/26/2023 Patient returns today for his 1 month follow-up having completed treatments on September 28, 2023 for adenocarcinoma of the prostate. Subjectively he is recovered nicely. He has no bowel or bladder complaints. His PSA is dropped to 0.06. He continues to take his orgovy. [facility] Referring Physician(s) : Diagnosis: C61 - Malignant neoplasm of prostate, Diagnosed 04/05/2023 (Active) Radiotherapy to Date: Course: Prostate 2023, Treatment Site: Prostate, Ref. ID: [id number], Energy: 6X, Dose/Fx (cGy): 250, #Fx: , Dose Correction (cGy): 0, Total Dose Delivered (cGy): 7,000, Start Date: 08/18/2023, End Date: 09/28/2023, Elapsed Days: 41 Current History: See above Current Medications: Allergies: No Known Allergies Current Complaints / Review of Systems: . Vital Signs: Performed on 10/26/2023 8:51 AM BMI - 35.958 kg/m2 (high), Height - 70 in, Weight - 250.6 lbs, Temperature - 96.3 f, Pulse - 89 /min, Respiration - 16 /min, O2 Sat - 98 %, Pain - 0, Fatigue - 0 and BP - 127/ 79 mm(hg). Physical Exam: General: Alert and oriented x 3. No acute distress. HEENT: Normocephalic, atraumatic. Extraocular Movements Intact: Pupils Equal, Round, Reactive to Light . Sclerae anicteric. LUNGS:. Respiratory rate is regular nonlabored HEART: Regular rate and rhythm, ABDOMEN: Mildly protuberant android pattern EXTREMITIES: No peripheral edema is identified NEUROLOGIC alert and orient x 3. Gait and speech within normal limits Performance Status: 100 Lab: None pending. Pathology: Primary, c61 - malignant neoplasm of prostate, Diagnosed 04/05/2023 (active) . Imaging: See HPI Impression: Adenocarcinoma the prostate now 1 month after completion of treatment Plan: I reviewed with him today the results of his PSA. He was quite delighted. He will be following up with Dr. Christian at some point to get another PSA. We talked about the importance of using the ADT for about a year. He verbalized understanding of this. We also talked about trying to get his A1c and his blood sugars in better control. Is very important with diabetic patients that they have better control of the blood sugar and a decrease in their A1c as this has been shown to have a detrimental effect if there are diabetes is not controlled in terms of their cancer cure rates. I recommended to him that he continued asked the [place] for a continuous glucose monitor. I think this would be in his best interest not only in terms of his diabetes and overall health but in terms of his control of his cancer down the line. We also talked about some different things in terms of dietary intervention. I reviewed with him that reading labels is very important. If sugar has been added to a product that sugar will be high fructose corn syrup. We talked about how fructose is actually in a obesegean and an inflammatory molecule. He verbalized understanding of all the above and he will return in 6 months with a PSA or a call if any problems should arise in the interim Signed by: 10/26/2023 9:41:07 AM <<Signature on File>> Time spent with patient:25 CPT Code: CPT Code:
== END 2023-11-01 23:59 | disposition home or self-care (01) ==
PROVIDERS: PCP Family Medicine; Visit Provider Radiology Radiation Oncology
DX: C61 Malignant neoplasm of prostate
CPT/HCPCS: 36415; 84153; 99024

== ENCOUNTER 2024-01-17 05:58 | Day surgery (SDC) | payer OTHER, SELFPAY ==
--- OUTSIDE RECORDS SUMMARY | 2024-01-17 06:00 | XMS_ITS | Patient Health Record ---
Author Name Unknown Organization [facility] Address [address] [place] [address] Care Team Providers Care Rn Resource Nurse Name Role Phone Jacoby Moore Unavailable [phone] Migration, Provider Unavailable Unavailable Reason For Referral Reason Prostate Cancer Referring Provider First Name Lizbeth arevalo Referring Provider Last Name LA Referring Provider Special[facility] Referred Organization [facility] Referred Provider Anibal Montana Referred Address [address],[place], [place],[address], Referred Provider Specialty Urology Referral Priority Routine Medications Medication SIG (Take, Route, Frequency, Duration) Notes Start Date End Date Status Iron 90 (18 Fe) MG 1 tablet Orally Once a day Active Atorvastatin Calcium 10 mg 1 tablet Orally once daily at hs Active Vitamin D 25 MCG (1000 UT) 1 tablet Orally Once a day for 30 day(s) Active Finasteride 5 mg 1 tablet Orally Once a day Active Ozempic (0.25 or 0.5 MG/DOSE) 2 MG/1.5ML 0.5 mg Subcutaneous weekly Active cholecalciferol 0.01 MG Chewable Tablet ORAL *Reorder from [facility] for eRx and Interaction Alerts* 03/01/2023 Active duloxetine 60 MG Delayed Release Oral Capsule ORAL *Reorder from [facility] for eRx and Interaction Alerts* 03/01/2023 Active Ascorbic Acid 1000 MG Oral 03/01/2023 Active Atorvastatin Calcium 10 MG Oral 03/01/2023 Active relugolix 120 MG Oral Tablet [Orgovyx] ORAL *Reorder from [facility] for eRx and Interaction Alerts* 08/12/2023 08/06/2024 Active glipiZIDE 10 MG Oral Tablet ORAL *Reorder from [facility] for eRx and Interaction Alerts* 03/01/2023 Active Finasteride 5 MG Oral 03/01/2023 Ac tive Metformin hydrochloride 1000 MG Oral Tablet ORAL *Reorder from [facility] for eRx and Interaction Alerts* 03/01/2023 Active Januvia 25 mg TAKE 1 TABLET DAILY Active ascorbic acid 250 MG / folic acid 1 MG / iron carbonyl 100 MG / vitamin B12 0.025 MG Oral Tablet ORAL [facility]* 03/01/2023 Active metFORMIN HCl 1000 mg TAKE 1 TABLET TWICE A DAY Active glipiZIDE 10 mg 1 tablet 30 minutes before meals Orally Twice daily Active DULoxetine HCl 60 mg 1 capsule Orally Once a day Active Aspirin 81 MG Oral Tablet Aspirin 81 MG Oral Tablet 06/22/2016 Active Losartan Potassium 25 mg 1 tablet Orally Once a day Active Immunizations Vaccine Route Administration Date Status Comme nts Afluria Quadrivalent Influenza Vaccine 3 years+ IM Intramuscular 05/09/2020 Administered Social History Tobacco Use: Social History Observation Description Date Details (start date - stop date) Never Smoker NA - NA xTobacco Use/Smoking Question Answer Notes Are you a nonsmoker Alcohol Screen (Audit-C) Question Answer Notes Did you have a drink containing alcohol in the p ast year? No Points 0 Interpretation Negative Problems Problem Type SNOMED Code ICD Code Onset Dates Problem Status W/U Status Risk Notes Problem 025890549 Fibromyalgia (M79.7) Active confirmed Problem 37929331 Essential hypert ension (I10) Active confirmed Problem 005653722 Type 2 diabetes mellitus without complication, without long-term current use of insulin (E11.9) Active confirmed Problem 86092971 Hypercholesterol emia (E78.00) Active confirmed Problem 157834392 Enlarged prostat e (N40.0) Active confirmed Problem Chronic maxillary sinusitis (40935909) Chronic maxillary sinusitis (473.0) 017 Active confirmed [id number]- Problem Fibromyalgia (148406508) Fibromyalgia (729.1) 016 Active confirmed [id number]- Problem Hypertension (05380542) Hypertension (401.1) 015 Active confirmed [id number]- Problem Type II diabetes mellitus without complication (465100513) Type II diabetes (250.00) 015 Active confirmed [id number]- Problem Posttraumatic stress disorder (62306356) Posttraumatic stress disorder (309.81) 016 Problem resolved confirmed [id number]- Problem Acute non-suppurative otitis media - serous (622891517) Acute serous otitis media (381.01) 016 Problem resolved confirmed [id number]- Problem Glossitis (37476703) Glossitis (529.0) 018 Problem resolved confirmed [id number]- Problem Cough (82389305) Cough (786.2) 014 Problem resolved confirmed [id number]- Problem Urgent desire to urinate (39464035) Urgency of urination (788.63) 018 Problem resolved confirmed [id number]- Problem Ingrown toenail (329790101) Ingrown toenail (703.0) 016 Problem resolved confirmed [id number]- Problem Sinusitis (95428032) Sinusitis (461) 016 Problem resolved confirmed [id number]- Problem Acute sinusitis (67281083) Acute sinusitis (461.9) 016 Problem resolved confirmed [id number]- Problem 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) Other abnormal findings on blood examination (790.99) 018 Problem resolved confirmed [id number]- Problem Sore throat (087429389) Sore Throat (462) 015 Problem resolved confirmed [id number]- Problem Esophageal stricture (88051229) Esophageal stricture (530.3) 017 Problem resolved confirmed [id number]-[id number]- Problem Acute suppurative otitis media (326087461) Acute suppurative otitis media (382.00) 017 Problem resolved confirmed [id number]- Problem Iron deficiency anemia (62828428) Other specified iron deficiency anemia (280.8) 018 Problem resolved confirmed [id number]-[id number]- Problem Chronic serous otitis media (97785189) Chronic serous otitis media (381.10) 016 Problem resolved confirmed [id number]- Problem Multiple joint pain (08946933) Joint pain, multiple sites (719.49) 016 Problem resolved confirmed [id number]-[id number]- Problem Knee pain (2709476469) Knee pain (719.46) 015 Problem resolved confirmed [id number]- Problem History of multiple allergies (situation) (207960737) Allergies (477) 015 Problem resolved confirmed [id number]-[id number]- Vital Signs Heart Rate 84 /min 08/12/2023 Temperature 97.7 degrees Fahrenheit 08/12/2023 Blood pressure diastolic 81 mm Hg 08/12/2023 Height-cm 177.80 cm 08/12/2023 Weight-kg 112.13 kg 08/12/2023 Height 70.00 in 08/12/2023 Blood pressure systolic 131 mm Hg 08/12/2023 Weight 247.204 lbs 08/12/2023 BMI 35.5 kg/m2 08/12/2023 Encounters Encounter Location Date Provider Diagnosis [facility] 0 0 03/01/2023 Provider Migration [facility] 0 03/16/2023 Provider [facility] 0 04/05/2023 Provider Migration [facility] 0 04/12/2023 Provider [facility] 0 0 05/02/2023 Provider [facility] 0 06/21/2023 Provider [facility] 0 0 07/06/2023 Provider [facility] 0 0 08/12/2023 Provider [facility] 0 12/24/2023 Provider Migration [facility] 0 0 12/25/2023 Provider Migration Plan Of Treatment Next Appt Details Provider Name:Anibal rodríguez, 02/14/2024 10:20:00 AM, [address] [facility] [address], [place], [address], Insurance Providers Payer Name Payer Address Payer Phone Subscriber Number Group Number Insured Name Patient Relationship to Insured Coverage Start Date Coverage End Date [employer] [address] [place] [phone] [id number] Diaz Charles Self - patient is the insured for Life Secondary to Medicare [address] [place] [address] [id number] Diaz Charles Self - patient is the insured Medical (General) History Medical History History ICD Code Esophageal stricture K22.2 Fibromyalgia M79.7 Enlarged prostate N40.0 Type 2 diabetes mellitus not at goal E11 .9 Sleep apnea G47.30 Essential Hypertension Hypercholesterolemia Fatty Liver with elevated LFTs per patie nt Surgical History Surgery Date(Month/Year) SLAP repair of left shoulder, by Dr. Beulah dominique 2008 C3-C4 Fusion, By Dr. Ramírez 02/2008 Bilateral carpal tunnel 2001
--- OUTSIDE RECORDS SUMMARY | 2024-01-17 06:00 | XMS_ITS | Patient Health Record ---
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 (Z79.891) Active confirmed High risk drug monitoring status (836009219) Problem Obstructive sleep apnea (adult) (pediatric) (G47.33) Active confirmed Obstructive sleep apnea syndrome (36289502) Problem Pain in left shoulder (M25.512) Active confirmed Shoulder joint pain (959622636) Problem Cervical disc disorder with radiculopathy, unspecified cervical region (M50.10) Active confirmed Cervical radiculopathy (22679321) Problem Fibromyalgia (M79.7) Active confirmed Fibromyalgia (744694557) Problem Other usp (current) drug therapy (Z79.899) Active confirmed Long-term current use of drug therapy (951741404) Problem Cervical disc disorder at C4-C5 level with radiculopathy (M50.121) Active confirmed Cervical disc disorder with radiculopathy (924019675) Problem Spinal stenosis, lumbar region without neurogenic claudication (M48.061) Active confirmed Spinal stenosis of lumbar region (22445461) Problem Vertebrogenic low back pain (M54.51) Active confirmed 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 by Dr. Carlene Ramírez, 2008 Left shoulder surgery, performed at [facility] by Dr. Chris Hahn, 2008 Right cataract surgery, performed by Dr. Gunter, 2019 Hospitalization History Reason Date(Month/Year)
--- NOTE | 2024-01-17 06:04 | W.PM.OPSFHP ---
Same Day Surgery H&P Indication for Procedure/HPI DATE OF PROCEDURE: January 17, 2024 CHIEF COMPLAINT/INDICATIONFOR SURGICAL PROCEDURE: suspected GI bleeding PREOP DIAGNOSIS: suspected GI bleeding PLANNED PROCEDURE: Operation Date: 01/17/24 07:00 Proposed Procedures p EGD 27562, 69875, G0121, R19.00, D50.9(Not Applicable) - Vincenzo Rutherford MD s Colonoscopy(Not Applicable) - Vincenzo Rutherford MD Medications/Allergies* Home Medications Medication Instructions Recorded Confirmed Type atorvastatin 20 mg tablet 20 mg PO DAILY 03/10/21 01/13/24 History cholecalciferol (vitamin D3) 50 50 mcg PO DAILY 03/10/21 01/13/24 History mcg (2,000 unit) capsule duloxetine 60 mg capsule,delayed 60 mg PO DAILY 03/10/21 01/13/24 History release glipizide 10 mg tablet 10 mg PO BID 03/10/21 01/13/24 History losartan 50 mg tablet 50 mg PO DAILY 03/10/21 01/13/24 History metformin 500 mg tablet,extended 500 mg PO BID 03/10/21 01/13/24 History release 24 hr semaglutide (weight loss) 0.5 0.5 mg SUBCUT Q7D 03/10/21 01/13/24 History mg/0.5 mL subcutaneous pen injector Allergies/Adverse Reactions Allergy/AdvReac Type Severity Reaction Status Date / Time No Known Allergies Allergy Verified 01/13/24 08:32 Pertinent History/Comorbid Conditions* Medical History (Updated 10/29/23 @ 00:01 by EDMAR Kelley) Abnormal results of liver function studies Essential hypertension Fibromyalgia Hyperlipemia Obesity, unspecified Polyp of colon Psychosexual disorder Sleep apnea, unspecified Type 2 diabetes mellitus with hyperglycemia Family History (Updated 03/10/21 @ 14:08 by Celio Camarillo M.D) Hypertension Social History Smoking and tobacco/nicotine status: never used tobacco/nicotine Alcohol intake: never Substance/Drug Use: never Pertinent Exam Findings alert, oriented x 3 and clear to auscultation bilaterally Recommendations Surgery/Procedure today Coding Level of Care Code Acute Code for Chg Fwd
[2024-01-17 06:07] VITALS: BMI 34.4
[2024-01-17 06:14] VITALS: BP 126/70; PULSE 78; RESP 18; TEMP 36.1; O2SAT 93
[2024-01-17 06:24] LABS: Glucose Point of Care 217 mg/dL (70-110)
[2024-01-17] MEDS: sodium chloride 0.9% 1,000 ML 30 ML IV (06:33)
--- NOTE | 2024-01-17 06:37 | P.ANESASSM_ITS ---
Pre-Anesthetic Assessment Height/Weight: Height 1.78 m Weight 108.862 kg Temp Pulse Resp BP Pulse Ox O2 Del Method 97.0 F L 78 18 126/70 93 Room Air 01/17/24 06:14 01/17/24 06:14 01/17/24 06:14 01/17/24 06:14 01/17/24 06:14 01/17/24 06:14 Preop Diagnosis: suspected GI bleeding Operation Date: 01/17/24 07:00 Proposed Procedures p EGD 39831, 52317, G0121, R19.00, D50.9(Not Applicable) - Vincenzo Rutherford MD s Colonoscopy(Not Applicable) - Vincenzo Rutherford MD Familial anesthetic complications: none Was Beta Zaria taken within 24 hours: N/A Was Clonidine taken within 24 hours: N/A Last intake: Intake Last Liquid Date 01/16/24 Last Liquid Time 18:00 Last Solid Date 01/15/24 Last Solid Time 19:00 Social No alcohol and No tobacco Exam alert, oriented x 3, clear to auscultation bilaterally and regular rate & rhythm Airway Submandibular: within normal limits Cervical ROM: within normal limits Mallampati: Class II Dentition: full History/ROS No significant history except as noted and No significant complaints Pulmonary None reported CV/HEM None reported None reported Hepatic None reported GI None reported Metabolic Diabetes Mellitus Jardiance 2 weeks ago [facility] [place] None reported Neuropsych None reported Anesthetic Plan ASA status: 2 Anesthesia: MAC Risk of > 500 ml blood loss (7ml/kg in children): No Medications/Allergies Home Medications Medication Instructions Recorded Confirmed Last Taken Type atorvastatin 20 mg tablet 20 mg PO DAILY 03/10/21 01/13/24 01/15/24 History cholecalciferol (vitamin D3) 50 50 mcg PO DAILY 03/10/21 01/13/24 01/15/24 History mcg (2,000 unit) capsule duloxetine 60 mg capsule,delayed 60 mg PO DAILY 03/10/21 01/13/24 01/15/24 History release glipizide 10 mg tablet 10 mg PO BID 03/10/21 01/13/24 01/15/24 History losartan 50 mg tablet 50 mg PO DAILY 03/10/21 01/13/24 01/15/24 History metformin 500 mg tablet,extended 500 mg PO BID 03/10/21 01/13/24 01/15/24 History release 24 hr semaglutide (weight loss) 0.5 0.5 mg SUBCUT Q7D 03/10/21 01/13/24 01/15/24 History mg/0.5 mL subcutaneous pen injector Allergies Allergy/AdvReac Type Severity Reaction Status Date / Time No Known Allergies Allergy Verified 01/13/24 08:32 Current Medications Generic Name Dose Route Start Last Admin Trade Name Zarina PRN Reason Stop Dose Admin Sodium Chloride 1,000 mls @ 30 mls/hr 01/17/24 06:00 01/17/24 06:33 Sodium Chloride 0.9% IV 01/18/24 05:59 30 mls/hr .Q24H NITO Administration PFSH Anesthesia Medical History Abnormal results of liver function studies Essential hypertension Fibromyalgia Hyperlipemia Obesity, unspecified Polyp of colon Psychosexual disorder Sleep apnea, unspecified Type 2 diabetes mellitus with hyperglycemia Family History Other Hypertension Social History Smoking and tobacco/nicotine status: never used tobacco/nicotine Alcohol intake: never Substance/Drug Use: never Data Anesthesia Cardiac Studies: No Data to Display
[2024-01-17 07:48] VITALS: BP 101/76; PULSE 74; RESP 18; TEMP 36.6; O2SAT 90
[2024-01-17 08:00] VITALS: BP 122/74; PULSE 75; RESP 18; O2SAT 96
[2024-01-17 08:10] VITALS: BP 114/85; PULSE 69; RESP 18; O2SAT 97
[2024-01-17 08:20] VITALS: BP 113/82; PULSE 64; RESP 18; O2SAT 96
--- NOTE | 2024-01-17 08:45 | ANE.PACU2 ---
Inpatient post-anesthesia follow up: Airway intact: Yes Vital signs: Temperature 97.9 F Pulse Rate 64 Respiratory Rate 18 Blood Pressure 113/82 Pulse Oximetry 96 Oxygen Delivery Me thod Room Air Oxygen Flow Rate Fraction of Inspir ed Oxygen Hydration adequate: Yes Nausea and vomiting: No Pain level: 1 Mental status: Baseline
== END 2024-01-17 08:47 | disposition home or self-care (01) ==
PROVIDERS: PCP Family Medicine; Visit Provider Surgery
PROC: 0DJ08ZZ Inspection of Upper Intestinal Tract, Via Natural or Artificial Opening Endoscopic (ICD-10-PCS; CPT 43235; principal; 2024-01-17 07:00)
PROC: 0DJD8ZZ Inspection of Lower Intestinal Tract, Via Natural or Artificial Opening Endoscopic (ICD-10-PCS; CPT 45378; 2024-01-17 07:00)
DX: D50.9 Iron deficiency anemia, unspecified (principal); R19.00 Intra-abdominal and pelvic swelling, mass and lump, unspecified site; K64.8 Other hemorrhoids; K29.80 Duodenitis without bleeding; K29.50 Unspecified chronic gastritis without bleeding; E11.65 Type 2 diabetes mellitus with hyperglycemia
CPT/HCPCS: 36416; 43239; 45378; 82962; 88305; 88342; J2704; J7030

== ENCOUNTER 2024-01-27 08:11 | Outpatient (CLI) | payer OTHER, SELFPAY ==
--- NOTE | 2024-01-27 08:12 | USCV_ITS ---
Charles Perales Age: 63 Gender: M : 1960 Exam Date: 01/27/2024 08:22 Ordering Phys: Ruby Bernstein MD Technologist: Gustavo Bullock [place] [facility] [place]: carotid bruit Risk Factors: Previous Vascular Surgery: Right Brachial BP: / Left Brachial BP: / Right Left Velocity (cm/s) Spectral Plaque Velocity (cm/s) Spectral Plaque Syst/Diast Broadening Syst/Diast Broadening 113.60/22.90 Prox CCA 108.10/ 24.70 100.30/22.70 Mid CCA 122.70/ 24.70 80.40/ 19.10 Distal CCA 105.60/ 21.40 45.30/ 15.40 Prox ICA 71.00 / 19.10 57.00/ 22.70 Mid ICA 72.10 / 20.50 61.60/ 21.60 Distal ICA 50.00 / 19.00 162.00 ECA 107.50 0.80 ICA/CCA 0.70 Antegrade Vertebral Antegrade 33.70/ 10.20 cm/s 44.80/ 14.80 cm/s Tri Subclavian Tri 121.9 112.3 0 0 FINDINGS Comparison: none available. No significant elevation of systolic or diastolic velocities. Waveforms are normal. No significant amount of calcified plaque or intimal thickening identified. CONCLUSIONS Normal carotid doppler ultrasound. Dr. Loretta Jara DO (Electronically Signed) Final Date: 27 January 2024 09:12 S
== END 2024-01-27 08:12 | disposition home or self-care (01) ==
LOC: RAD 08:11
PROVIDERS: PCP Family Medicine; Visit Provider Family Medicine
DX: R09.89 Other specified symptoms and signs involving the circulatory and respiratory systems (principal)
CPT/HCPCS: 93880

== ENCOUNTER → 2024-02-10 07:58 | Outpatient (BNVA) | payer OTHER, SELFPAY | PROVIDERS: PCP Family Medicine; Visit Provider Surgery | DX: Z09 Encounter for follow-up examination after completed treatment for conditions other than malignant neoplasm (principal) | CPT/HCPCS: 99213 ==

== ENCOUNTER 2024-07-13 10:07 | Outpatient (CLI) | payer OTHER, SELFPAY ==
[2024-07-13 10:46] LABS: Blood Urea Nitrogen 9 mg/dL (8-23)
--- NOTE | 2024-07-13 11:00 | CT_ITS ---
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 Additional debi ging performed at 2.5 mm axial images status post IV contrast. Bone and soft tissue windows are revie wed. All CT scans at [facility] use at least one of these dose optimization techniques: autom ated exposure control; mA and/or kV adjustment per patient size (includes targeted exams where dose i s matched to clinical indication); or iterative reconstruction. CONTRAST: Omnipaque 350; 100 mL IV. DLP: 2212.78 mGy.cm COMPARISON: None available. No acute intracranial hemorrhage, edema or midline shift. No significant atrophy or prior infarct. No identifiable small vessel disease. No enhancing mass or vascular malformations identified. Dural venous sinuses are normally enhancing. Visualized [place] of [place] is unremarkable. Paranasal sinuses as visualized: Very small air-fluid level in the LEFT maxillary sinus. Mastoid air cells: Clear. Calvarium and scalp: Intact. Calcified plaque in the distal vertebral arteries and in the intracranial carotid arteries. CT/CT head wo/w con [id number] IMPRESSION: 1. No acute intracranial hemorrhage or edema. 2. No significant atrophy or volume loss. 3. No enhancing masses or vascular malformations. 4. Calcified plaque in the distal vertebral and intracranial carotid arteries.
[2024-07-13] MEDS: iohexol 350 mg/mL 500 mL Btl (per mL) IV (11:05)
== END 2024-07-13 10:08 | disposition home or self-care (01) ==
PROVIDERS: PCP Family Medicine; Visit Provider Internal Medicine Medical Oncology
DX: C82.18 Follicular lymphoma grade II, lymph nodes of multiple sites (principal); I67.2 Cerebral atherosclerosis; R11.2 Nausea with vomiting, unspecified; R42 Dizziness and giddiness
CPT/HCPCS: 70470; 82565; 84520

== ENCOUNTER 2024-08-01 13:11 | Outpatient (CLI) | payer OTHER, SELFPAY ==
[2024-08-01 14:25] LABS: Prostate Specific Antigen < 0.014 ng/mL (0-4)
== END 2024-08-01 13:12 | disposition home or self-care (01) ==
PROVIDERS: PCP Family Medicine; Visit Provider Urology
DX: C61 Malignant neoplasm of prostate (principal)
CPT/HCPCS: 36415; 84153

== ENCOUNTER 2024-10-17 10:43 | Outpatient (RCR) | payer OTHER, SELFPAY | END 2024-10-31 23:59 | disposition home or self-care (01) | LOC: SPT 10:43 | PROVIDERS: Visit Provider Family Medicine | DX: M54.31 Sciatica, right side (principal) | CPT/HCPCS: 97110; 97161 ==

== ENCOUNTER 2024-11-01 06:00 | Outpatient (RCR) | payer OTHER, SELFPAY | END 2024-12-01 23:55 | disposition home or self-care (01) | LOC: SPT 06:00 | PROVIDERS: Visit Provider Family Medicine | DX: M54.31 Sciatica, right side (principal) | CPT/HCPCS: 97110; 97140 ==

== ENCOUNTER 2024-12-02 05:00 | Outpatient (RCR) | payer OTHER, SELFPAY | END 2024-12-31 06:52 | disposition home or self-care (01) | LOC: SPT 05:00 | PROVIDERS: Visit Provider Family Medicine | DX: M54.31 Sciatica, right side (principal) | CPT/HCPCS: 97110; 97140 ==

== ENCOUNTER 2025-01-15 14:59 | Outpatient (CLI) | payer OTHER, SELFPAY ==
--- NOTE | 2025-01-15 15:05 | MR_ITS ---
WS: [id number] MRI LUMBAR SPINE NONCONTRAST HISTORY: CHRONIC LOW BACK PAIN right-sided sciatica. COMPARISON: 06/12/2018 TECHNIQUE: Sagittal and axial multisequence imaging is submitted. Anterior cervical fusion at C4-5. Normal lumbar alignment. No marrow edema or fractures. Mild disc desiccation throughout the lumbar spine. Conus terminates normally at L1-2 disc level. L1-L2: No stenosis. Ligamentum flavum and moderate facet arthropathy. L2-L3: Mild annular disc bulging with a central disc protrusion. Ligamentum flavum and facet arthritis. Narrowing of the subarticular recesses and facet arthritis. L3-L4: Diffuse annular disc bulging with moderate ligamentum flavum and facet arthritis. Effacement of CSF with disc contact on the traversing L4 nerve roots. Small bilateral foraminal disc protrusions. Moderate central, bilateral subarticular recess and foraminal stenosis. L4-L5: Marked annular disc bulging with severe ligamentum flavum and facet arthritis. Fluid in the facet joints. Disc contact on the traversing and exiting nerve roots. Severe central, bilateral subarticular recess and moderate foraminal stenosis. L5-S1: Annular disc bulge with a central disc protrusion. Marked ligamentum flavum and facet arthritis. Disc contacts the S1 nerve roots. Mild central with subarticular recess stenosis. Moderate LEFT and mild RIGHT foraminal stenosis. Paravertebral soft tissues normal. MR/MR lumbar spine wo con* [id number] IMPRESSION: 1. Progression of stenoses and degenerative disc and facet disease since 2018. 2. L4-5: Severe central, bilateral subarticular recess and moderate foraminal stenosis. There is disc contact on the exiting and traversing nerve roots. 3. L5-S1: Central disc protrusion. Mild central, subarticular recess and moder ate LEFT and mild RIGHT foraminal stenosis. 4. L3-4: Moderate central, bilateral subarticular recess and foraminal stenosi s. Efface CSF with contact by disc on the traversing L4 nerve roots. Additional bilateral foraminal disc protrusions. 5. L2-3: Mild encroachment upon the subarticular recesses. 6. No fracture.
== END 2025-01-15 15:00 | disposition home or self-care (01) ==
LOC: RAD 15:00
PROVIDERS: PCP Family Medicine; Visit Provider Family Medicine
DX: M51.26 Other intervertebral disc displacement, lumbar region (principal); M48.061 Spinal stenosis, lumbar region without neurogenic claudication; M51.17 Intervertebral disc disorders with radiculopathy, lumbosacral region
CPT/HCPCS: 72148

== ENCOUNTER → 2025-02-12 15:03 | Outpatient (BNVA) | payer OTHER, SELFPAY | PROVIDERS: PCP Family Medicine; Visit Provider Orthopaedic Surgery | DX: M48.062 Spinal stenosis, lumbar region with neurogenic claudication (principal); Z01.818 Encounter for other preprocedural examination | CPT/HCPCS: 36415; 80053; 81001; 85025; 99204 ==

== ENCOUNTER 2025-03-18 05:44 | Day surgery (SDC) | payer OTHER, SELFPAY ==
[2025-03-18] VITALS (14 sets, daily range): BP systolic 112–136; BP diastolic 70–85; PULSE 66–77; RESP 15–22; TEMP 36.3–36.6; O2SAT 92–97; BMI 34.5
--- NOTE | 2025-03-18 06:19 | W.PM.OPSUD ---
Surgery/Procedure H&P Update DATE OF PROCEDURE: March 18, 2025 DATE H&P PERFORMED: 02/12/25 PREOP DIAGNOSIS: Lumbar stenosis with neurogenic claudication PLANNED PROCEDURE: Operation Date: 03/18/25 07:00 Proposed Procedures p Lumbar Spine Decompression(Not Applicable) - Gaston Pitts DO
[2025-03-18] MEDS: ceFAZolin 2,000 mg SDV 2000 MG IVP (07:02)
--- NOTE | 2025-03-18 07:02 | ANES.PREANE2 ---
Pre-Anesthetic Assessment Height/Weight: Height 1.78 m Weight 109.316 kg Temp Pulse Resp BP Pulse Ox O2 Del Method 97.3 F L 70 18 130/79 97 Room Air 03/18/25 06:02 03/18/25 06:02 03/18/25 06:02 03/18/25 06:18 03/18/25 06:02 03/18/25 06:02 Preop Diagnosis: Lumbar stenosis with neurogenic claudication Operation Date: 03/18/25 07:00 Proposed Procedures p Lumbar Spine Decompression(Not Applicable) - Gaston Pitts DO Familial anesthetic complications: None Was Beta Zaria taken within 24 hours: N/A Was Clonidine taken within 24 hours: N/A Last intake: Intake Last Liquid Date 03/17/25 Last Liquid Time 20:00 Last Solid Date 03/17/25 Last Solid Time 20:00 Social No alcohol and No tobacco Exam alert, oriented x 3, clear to auscultation bilaterally and regular rate & rhythm Airway Mallampati: Class IV Dentition: other (missing) Pulmonary Sleep Apnea CV/HEM Hypertension LBBB Metabolic Diabetes Mellitus and Hyperlipidemia Anesthetic Plan ASA status: 3 Anesthesia: General Risk of > 500 ml blood loss (7ml/kg in children): No Medications/Allergies Home Medications ?Medication ?Instructions ?Recorded ?Confirmed ?Last Taken ?Type atorvastatin 20 mg tablet 20 mg PO DAILY 03/10/21 03/14/25 03/16/25 20:00 History cholecalciferol (vitamin D3) 50 50 mcg PO DAILY 03/10/21 03/14/25 03/16/25 20:00 History mcg (2,000 unit) capsule duloxetine 60 mg capsule,delayed 60 mg PO DAILY 03/10/21 03/14/25 03/16/25 20:00 History release glipizide 10 mg tablet 10 mg PO BID 03/10/21 03/14/25 03/16/25 20:00 History losartan 50 mg tablet 50 mg PO DAILY 03/10/21 03/14/25 03/16/25 20:00 History metformin 500 mg tablet,extended 500 mg PO BID 03/10/21 03/14/25 03/16/25 20:00 History release 24 hr semaglutide (weight loss) 0.5 0.5 mg SUBCUT Q7D 03/10/21 03/14/25 03/09/25 History mg/0.5 mL subcutaneous pen injector pantoprazole 40 mg tablet,delayed See Rx Instructions .Route 07/06/24 03/14/25 03/16/25 20:00 Rx release .COMPLEX #30 tabs relugolix 120 mg tablet 120 mg PO DAILY 02/20/25 03/14/25 03/16/25 20:00 History Allergies Allergy/AdvReac Type Severity Reaction Status Date / Time No Known Allergies Allergy Verified 03/18/25 05:59 Current Medications Generic Name Dose Route Start Last Admin Trade Name Chavaq PRN Reason Stop Dose Admin Sodium Chloride 1,000 mls @ 30 mls/hr 03/18/25 06:00 03/18/25 06:18 Sodium Chloride 0.9% IV 03/19/25 05:59 30 mls/hr .Q24H NITO Administration PFS Anesthesia Medical History (Updated 02/12/25 @ 15:54 by Gaston Pitts DO) Abnormal results of liver function studies Essential hypertension Fibromyalgia Hyperlipemia Obesity, unspecified Polyp of colon Psychosexual disorder Sleep apnea, unspecified Type 2 diabetes mellitus with hyperglycemia Family History Other Hypertension Social History Smoking and tobacco/nicotine status: never used tobacco/nicotine Alcohol intake: never Substance/Drug Use: never
[2025-03-18] MEDS: lidocaine-epi 1% 20 mL INJ INJECTION (07:40)
--- NOTE | 2025-03-18 08:13 | PM.OP ---
Operative Report Date of procedure: March 18, 2025 Pre-op diagnosis: Lumbar stenosis with neurogenic claudication Post-op diagnosis: same Procedure done: L4/5 laminectomy with partial facetectomy Surgeon: Gaston Pitts DO Estimated blood loss (mL): 5 Procedure: L4/5 laminectomy with partial facetectomy Patient is brought to the operative suite. After undergoing anesthesia they are placed in the prone position. All areas of impingement are well padded. Patient is then prepped and draped in the normal sterile fashion. A skin incision is made over the L4/5 level. This is confirmed under c-arm guidance. A series of dilators are passed and the tubular retractor is docked on the L4 lamina. A bovie is used to clear the soft tissue off the lamina and the L 4/5 facet joint. A high speed odette is then used to perform the laminectomy and take down the medial aspect of the L 4/5 facet joint. A kerrison rongeure was then used to take down the remaining lamina and smooth the edge of the laminectomy up to the point where the ligamentum flavum attaches. Attention was then brought to the medial aspect of the facet joint. The remaining medial aspect of the superior and inferior aspect of the facet joint were taken down with the kerrison from the pedicle of L4 to L 5. The facet joint had significant hypertrophy. Attention was then brought to the Ligamentum Flavum. The ligament was taken down from the lamina of L4 to L5 and out medially to the remaining facet joint. The ligament was thick. The dura was then exposed. The dura was in good repair. The L4 nerve was then traced with a curette out the L4/5 foramen and found to be adequately decompressed. The L5 nerve was traced with a curette around the L5 pedicle. The lateral recess was opened with a kerrison helping to further decompress the L5 nerve. Wound is then irrigated copiously with saline and surgiflo is used to stop any bleeding. The tubular retractor is removed and the wound is closed with vicryl and monocryl suture. Steri strips were applied. A sterile dressing is then placed. Patient was then placed in the supine position and transferred to the PACU in stable condition.
--- NOTE | 2025-03-18 08:17 | PC.NURSE ---
0808 - GREER Bermudez in pacu with pt - stated to this nurse marcus areas of redness below eyes and to right side of cheek - ointment applied per [facility] - no open areas noted -
--- NOTE | 2025-03-18 08:44 | PC.NURSE ---
0870 - notified pts of paper tape markings to face - visualized 3 sites with - no open area noted - states she has no further questions
[2025-03-18] MEDS: fentaNYL 50 mcg/mL INJ 2mL IVP (09:17)
--- NOTE | 2025-03-18 09:32 | SUR.PHASEII ---
09:20 OP DRESSING ON LUMBER AREA BLOOD SOAKED. DRESSING REMOVED AND NEW SILVERLON DRESSING APPLIED WITH ADDITIONAL 4 X 4. PT TOLERATED WELL.
--- NOTE | 2025-03-18 09:37 | SUR.PHASEII ---
MODERATE RELIEF OF PAIN . ROM AND SENSATION ALL 4 EXTREMITIES.
[2025-03-18] MEDS: HYDROcodone-acetaminophen 5-325 mg Tablet 1 TAB PO (10:09)
--- NOTE | 2025-03-18 10:45 | ANE.PACU2 ---
Inpatient post-anesthesia follow up: Airway intact: Yes Vital signs: Temperature 97.9 F Pulse Rate 75 Respiratory Rate 16 Blood Pressure 112/74 Pulse Oximetry 96 Oxygen Delivery Me thod Room Air Oxygen Flow Rate Fraction of Inspir ed Oxygen Hydration adequate: Yes Nausea and vomiting: No Pain level: 1 Mental status: Baseline
--- NOTE | 2025-03-18 14:41 | XR_ITS ---
WS: [id number] XR lumbar spine 1V [id number] REASON FOR EXAM: OR PIC, DECOMPRESSION FINDINGS: Surgical instrument overlying the right L4-L5 disc space. XR/XR lumbar spine 1V [id number] IMPRESSION: Lumbar level localization and surgery as above.
== END 2025-03-18 10:45 | disposition home or self-care (01) ==
PROVIDERS: PCP Family Medicine; Visit Provider Orthopaedic Surgery
PROC: (CPT 63005; principal; 2025-03-18 07:00)
DX: M48.062 Spinal stenosis, lumbar region with neurogenic claudication (principal); E11.9 Type 2 diabetes mellitus without complications; E78.5 Hyperlipidemia, unspecified; G47.30 Sleep apnea, unspecified; I10 Essential (primary) hypertension; Z79.84 Long term (current) use of oral hypoglycemic drugs; K21.9 Gastro-esophageal reflux disease without esophagitis; M79.7 Fibromyalgia; E66.9 Obesity, unspecified; Z68.34 Body mass index [BMI] 34.0-34.9, adult
CPT/HCPCS: 63047; 36416; 72020; 76000; 82962; J0690; J2250; J2704; J3010; J7030; J9999

== ENCOUNTER → 2025-04-02 13:18 | Outpatient (BNVA) | payer OTHER, SELFPAY | PROVIDERS: PCP Family Medicine; Visit Provider Orthopaedic Surgery | DX: Z98.890 Other specified postprocedural states (principal) | CPT/HCPCS: 99024 ==

== ENCOUNTER → 2025-04-30 14:36 | Outpatient (BNVA) | payer OTHER, SELFPAY | PROVIDERS: PCP Family Medicine; Visit Provider Orthopaedic Surgery | DX: Z98.890 Other specified postprocedural states (principal) | CPT/HCPCS: 99024 ==

== ENCOUNTER → 2025-06-11 10:35 | Outpatient (BNVA) | payer OTHER, SELFPAY | PROVIDERS: PCP Family Medicine; Visit Provider Orthopaedic Surgery | DX: Z98.890 Other specified postprocedural states (principal) | CPT/HCPCS: 99024 ==